=== PATIENT | female | born 1975 | race African-American/Black ===

== ENCOUNTER 2023-12-07 15:20 | Emergency (ER) | payer MEDICAID ==
[~2023-12-07] VITALS: Ht 167.6 cm; Wt 75.0 kg
[~2023-12-07 15:20] MED LIST: BUPR-114 PO; HALO5TAB2 PO; LACO50TA2 PO; LEVE500T19 PO; OLAN10TA72 PO
[2023-12-07 15:27] VITALS: BP 116/75; PULSE 95; RESP 18; TEMP 98.6; O2SAT 100
== END 2023-12-07 17:35 | disposition left against medical advice (07) ==
LOC: ER 15:20
DX: Z76.0 Encounter for issue of repeat prescription (principal); Z53.21 Procedure and treatment not carried out due to patient leaving prior to being seen by health care provider

== ENCOUNTER 2024-06-19 19:58 | Emergency (ER) | payer MEDICAID ==
[~2024-06-19] VITALS: Ht 162.6 cm; Wt 65.0 kg
[2024-06-19 20:09] VITALS: BP 139/83; PULSE 87; RESP 20; TEMP 36.7; O2SAT 98
[2024-06-19 21:02] LABS: HEMATOCRIT. 38.3 % (36.0-48.0); HEMOGLOBIN. 12.1 g/dL (12.0-16.0); MEAN CORPUSCULAR HEMOGLOBIN 26.6 pg (28.0-32.0); MEAN CORPUSCULAR HGB CONC 31.6 g/dL (31.0-37.0); MEAN CORPUSCULAR VOLUME 84.4 fL (81.0-99.0); MEAN PLATELET VOLUME 8.2 fl (7.4-10.4); PLATELET 304 x1000/uL (130-400); RED BLOOD CELL COUNT 4.53 mill/uL (4.2-5.4); RED CELL DISTRIBUTION WIDTH 15.4 % (11.6-14.6); WHITE BLOOD COUNT 8.6 x1000/uL (4.5-11.0)
[2024-06-19 21:09] LABS: CHLORIDE 113 mEq/L (98-107); POTASSIUM 3.2 mEq/L (3.5-5.1); SODIUM 148 mEq/L (136-145)
[2024-06-19 21:10] LABS: CARBON DIOXIDE 28 mEq/L (21-32)
[2024-06-19 21:11] LABS: CALCIUM 9.9 mg/dL (8.7-10.4)
[2024-06-19 21:15] LABS: CREATININE 0.8 mg/dL (0.6-1.0); DIFFERENTIAL COMMENT 1; GLUCOSE 119 mg/dL (70-105); UREA NITROGEN BLOOD 24 mg/dL (9-23)
[2024-06-19 21:17] LABS: ACETAMINOPHEN < 2 ug/mL (10-30)
[2024-06-19 21:18] LABS: HCG SCREEN NEGATIVE
[2024-06-19 21:26] LABS: ETHANOL BLOOD < 10 mg/dL (<10)
[2024-06-19] MEDS: SODIUM CHLORIDE 0.9% 1,000 ML IV ONE (21:36)
[2024-06-19 21:38] LABS: PLATELET ESTIMATE NORMAL
[2024-06-19] MEDS: POTASSIUM CHLORIDE 20MEQ TABLET SR PO ONE (22:52)
[2024-06-20 07:45] LABS: CLARITY URINE CLOUDY (CLEAR); COLOR URINE YELLOW (YELLOW); GLUCOSE URINE NEGATIVE (NEGATIVE); KETONES URINE NEGATIVE (NEGATIVE); LEUKOCYTE ESTERASE URINE 3+ (NEGATIVE); NITRITE URINE NEGATIVE (NEGATIVE); OCCULT BLOOD URINE NEGATIVE (NEGATIVE); PH URINE 6.5 (4.5-8.0); PROTEIN URINE TRACE (NEGATIVE); SPECIFIC GRAVITY URINE 1.024 (1.005-1.030); UROBILINOGEN URINE 0.2 E.U./dL (0.2-1.0)
[2024-06-20 07:59] LABS: BACTERIA URINE 2+; SQUAMOUS EPITHELIAL CELL URINE 1+ /lpf (RARE/1+); WBC URINE 25-50 /hpf (0-2); YEAST URINE NONE SEEN
[2024-06-20 08:00] LABS: *AMPHETAMINES SCREEN URINE NEGATIVE (NEGATIVE); *BARBITURATES SCREEN URINE NEGATIVE (NEGATIVE); *BENZODIAZEPINES SCREEN URINE NEGATIVE (NEGATIVE); *COCAINE SCREEN URINE NEGATIVE (NEGATIVE)
[2024-06-20 08:01] LABS: CANNABINOID URINE SCREEN NEGATIVE (NEGATIVE); ECSTASY MDMA SCREEN URINE NEGATIVE (NEGATIVE); METHADONE URINE SCREEN NEGATIVE (NEGATIVE); OPIATES URINE SCREEN NEGATIVE (NEGATIVE); PHENCYCLIDINE URINE SCREEN PRESUMTIVE POSITIVE (NEGATIVE)
== END 2024-06-20 12:31 | disposition home or self-care (01) ==
LOC: ER 19:58
DX: R41.82 Altered mental status, unspecified (principal); R46.2 Strange and inexplicable behavior; Z79.899 Other long term (current) drug therapy
CPT/HCPCS: 80048; 80307; 80329; 80320; 84703; 85025; 36415; 70450; 96360; 96361; 99284; 80305; 81003; 87086; J7030; G0480

== ENCOUNTER 2024-07-22 10:15 | Emergency (ER) | payer MEDICAID ==
[~2024-07-22] VITALS: Ht 170.2 cm; Wt 73.0 kg
[2024-07-22 10:18] VITALS: O2SAT 99
[2024-07-22 11:07] LABS: CLARITY URINE CLEAR (CLEAR); COLOR URINE YELLOW (YELLOW); GLUCOSE URINE NEGATIVE (NEGATIVE); KETONES URINE NEGATIVE (NEGATIVE); LEUKOCYTE ESTERASE URINE TRACE (NEGATIVE); NITRITE URINE NEGATIVE (NEGATIVE); OCCULT BLOOD URINE NEGATIVE (NEGATIVE); PROTEIN URINE NEGATIVE (NEGATIVE); SPECIFIC GRAVITY URINE 1.025 (1.005-1.030); UROBILINOGEN URINE 0.2 E.U./dL (0.2-1.0)
[2024-07-22 11:38] LABS: *AMPHETAMINES SCREEN URINE NEGATIVE (NEGATIVE); *BARBITURATES SCREEN URINE NEGATIVE (NEGATIVE); *BENZODIAZEPINES SCREEN URINE NEGATIVE (NEGATIVE); *COCAINE SCREEN URINE NEGATIVE (NEGATIVE); METHADONE URINE SCREEN NEGATIVE (NEGATIVE); OPIATES URINE SCREEN NEGATIVE (NEGATIVE); PHENCYCLIDINE URINE SCREEN PRESUMTIVE POSITIVE (NEGATIVE)
[2024-07-22 11:39] LABS: CANNABINOID URINE SCREEN NEGATIVE (NEGATIVE); ECSTASY MDMA SCREEN URINE NEGATIVE (NEGATIVE)
[2024-07-22 11:45] LABS: SQUAMOUS EPITHELIAL CELL URINE 2+ /lpf (RARE/1+)
[2024-07-22 11:46] LABS: RBC URINE 0-2 /hpf (0-2)
[2024-07-22 11:47] LABS: BACTERIA URINE NONE SEEN; MUCUS URINE 1+ /lpf (< = 2+); YEAST URINE NONE SEEN
[2024-07-22 12:00] LABS: HEMATOCRIT. 41.5 % (36.0-48.0); HEMOGLOBIN. 13.1 g/dL (12.0-16.0); MEAN CORPUSCULAR HEMOGLOBIN 26.6 pg (28.0-32.0); MEAN CORPUSCULAR HGB CONC 31.5 g/dL (31.0-37.0); MEAN CORPUSCULAR VOLUME 84.2 fL (81.0-99.0); MEAN PLATELET VOLUME 8.2 fl (7.4-10.4); PLATELET 304 x1000/uL (130-400); RED BLOOD CELL COUNT 4.92 mill/uL (4.2-5.4); RED CELL DISTRIBUTION WIDTH 15.9 % (11.6-14.6); WHITE BLOOD COUNT 5.5 x1000/uL (4.5-11.0)
[2024-07-22 12:05] LABS: CHLORIDE 109 mEq/L (98-107); POTASSIUM 3.4 mEq/L (3.5-5.1); SODIUM 147 mEq/L (136-145)
[2024-07-22 12:06] LABS: CALCIUM 9.6 mg/dL (8.7-10.4); CARBON DIOXIDE 28 mEq/L (21-32); DIFFERENTIAL COMMENT 1
[2024-07-22 12:11] LABS: CREATININE 0.7 mg/dL (0.6-1.0); GLUCOSE 108 mg/dL (70-105); UREA NITROGEN BLOOD 14 mg/dL (9-23)
[2024-07-22 12:12] LABS: ETHANOL BLOOD < 10 mg/dL (<10)
[2024-07-22 12:13] LABS: ACETAMINOPHEN < 2 ug/mL (10-30)
[2024-07-22 12:17] LABS: HCG SCREEN NEGATIVE
[2024-07-22 13:01] LABS: ERYTHROCYTE SEDIMENTATION RATE 8 mm/hr (0-20)
[2024-07-22] MEDS: IBUPROFEN 600MG TABLET PO ONE (13:02)
[2024-07-22 16:33] LABS: PLATELET ESTIMATE NORMAL
[2024-07-22] MEDS: POTASSIUM CHLORIDE 20MEQ TABLET SR PO ONE (16:38)
[2024-07-22 20:39] VITALS: BP 115/62; PULSE 94; RESP 16; TEMP 36.4; O2SAT 98
== END 2024-07-22 21:19 ==
LOC: ER 10:15
DX: R45.851 Suicidal ideations (principal); F20.9 Schizophrenia, unspecified; Z79.899 Other long term (current) drug therapy; Z20.822 Contact with and (suspected) exposure to COVID-19
CPT/HCPCS: 36415; 73560; 80048; 80305; 80307; 80320; 80329; 81003; 84703; 85025; 85651; 87426; 99285; G0480